=== PATIENT | male | born 1995 | race Caucasian/White ===

== ENCOUNTER 2019-07-14 12:31 | Day surgery (SDC) | payer BC ==
[~2019-07-14] VITALS: Ht 180.3 cm; Wt 72.6 kg
[2019-07-14] MEDS ORDERED: BUPIVACAINE/PF-EPI 0.25% 1:200K ONE (12:53)
[2019-07-14] MEDS ORDERED: BACITRACIN 50,000 UNIT ONE (12:53)
[2019-07-14] MEDS ORDERED: LACTATED RINGERS 1,000 ML IV SCH (12:58)
[2019-07-14] MEDS ORDERED: MEPERIDINE/PF 25MG/0.5ML IVPush PRN (13:00)
[2019-07-14] MEDS ORDERED: FENTANYL PF 100 MCG/2ML IV PRN (13:00)
[2019-07-14] MEDS ORDERED: HYDROmorphone 1 MG/ML, 1ML INJ IVPush PRN (13:00)
[2019-07-14] MEDS ORDERED: ACETAMINOPHEN 500 MG TABLET PO ONE (13:00)
[2019-07-14] MEDS ORDERED: GABAPENTIN 300 MG CAPSULE PO ONE (13:00)
[2019-07-14] MEDS ORDERED: hydrALAzine 20 MG/ML, 1ML IV PRN (13:00)
[2019-07-14] MEDS ORDERED: ONDANSETRON 2MG/ML, 2ML IVPush PRN (13:00)
[2019-07-14] MEDS ORDERED: morphine SULFATE 10 MG/ML, 1ML IVPush PRN (13:00)
[2019-07-14] MEDS ORDERED: LABETALOL 5MG/ML, 20ML IV PRN (13:00)
[2019-07-14] MEDS ORDERED: CHLORHEXIDINE 15 ML UDC MM ONE (13:00)
[2019-07-14] MEDS ORDERED: MIDAZOLAM 1 MG/ML, 2ML ONE (13:03)
[2019-07-14] MEDS ORDERED: FENTANYL PF 250 MCG/5ML ONE (13:03)
[2019-07-14] MEDS ORDERED: PROPOFOL 10 MG/ML, 20ML ONE (13:06)
[2019-07-14] MEDS ORDERED: NEOSTIGMINE 1 MG/ML, 10ML ONE (13:06)
[2019-07-14] MEDS ORDERED: ROCURONIUM 10MG/ML,5ML ONE (13:06)
[2019-07-14] MEDS ORDERED: GLYCOPYRROLATE 0.2MG/1ML, 5ML ONE (13:06)
[2019-07-14] MEDS ORDERED: CEFAZOLIN 1,000 MG ONE (13:06)
[2019-07-14] MEDS ORDERED: GABAPENTIN 300 MG CAPSULE ONE (13:16)
[2019-07-14] MEDS ORDERED: CHLORHEXIDINE 15 ML UDC ONE (13:16)
[2019-07-14] MEDS ORDERED: ACETAMINOPHEN 500 MG TABLET ONE (13:16)
[2019-07-14] MEDS ORDERED: BUPIVACAINE/PF 0.5% ONE (13:19)
[2019-07-14] MEDS ORDERED: EPINEPHRINE 1 MG/ML, 1ML ONE (13:19)
[2019-07-14] MEDS ORDERED: HYDR-3240 PO (13:21)
[2019-07-14] MEDS ORDERED: CETI-158 PO (13:21)
[2019-07-14 13:24] VITALS: BP 123/77
[2019-07-14] MEDS ORDERED: MEPERIDINE/PF 50 MG/ML ONE (14:45)
[2019-07-14] MEDS ORDERED: OXYcodone 5 MG/5 ML ORAL.SOL UDC ONE ×2 (14:54→15:10)
[2019-07-14] MEDS: OXYcodone 5 MG/5 ML ORAL.SOL UDC PO PRN ×2 (14:55→15:05)
== END 2019-07-14 16:30 | disposition home or self-care (01) ==
LOC: OUT 12:31
PROVIDERS: ATTEND Orthopaedic Surgery
DX: S52.032A Displaced fracture of olecranon process with intraarticular extension of left ulna, initial encounter for closed fracture (principal); Z79.891 Long term (current) use of opiate analgesic; Z87.891 Personal history of nicotine dependence; Z82.3 Family history of stroke; Z82.49 Family history of ischemic heart disease and other diseases of the circulatory system; W01.0XXA Fall on same level from slipping, tripping and stumbling without subsequent striking against object, initial encounter; Y93.51 Activity, roller skating (inline) and skateboarding; Y92.830 Public park as the place of occurrence of the external cause; Y99.8 Other external cause status
CPT/HCPCS: 24685; 73070; C1713; J0171; J0690; J2175; J2250; J2704; J2710; J3010; J7120; 76000